=== PATIENT | female | born 1930 | race Hispanic/Latino ===

== ENCOUNTER → 2019-10-05 | Outpatient (CLI) | payer MEDICARE | END | disposition home or self-care (01) | LOC: SHCH 08:38 | PROVIDERS: ATTEND Internal Medicine Cardiovascular Disease | DX: I73.9 Peripheral vascular disease, unspecified (principal) | CPT/HCPCS: 93922 ==

== ENCOUNTER 2019-10-23 07:28 | Day surgery (SDC) | payer MEDICARE ==
[2019-10-21 14:51] LABS: BASOPHILS % (AUTO) 0.2 % (0.0-5.0); EOSINOPHILS % (AUTO) 0.4 % (0.0-8.0); HEMATOCRIT 32.2 % (36-48); LYMPHOCYTES % (AUTO) 8.4 % (21.0-51.0); MEAN CORPUSCULAR HEMOGLOBIN 28.2 pg (27.0-33.0); MEAN CORPUSCULAR HGB CONC 30.4 g/dL (32.0-36.0); MEAN CORPUSCULAR VOLUME 92.5 fL (79-99); MONOCYTES % (AUTO) 9.4 % (3.0-13.0); PLATELET COUNT (AUTO) 362 K/uL (130-400); RED BLOOD CELL COUNT(AUTO) 3.48 MIL/uL (4.00-5.50)
[2019-10-21 15:03] LABS: CREATININE 1.2 mg/dL (0.5-1.5); POTASSIUM 4.5 mmol/L (3.5-5.1)
[2019-10-21 15:13] LABS: INR 0.97 (0.85-1.15); PARTIAL THROMBOPLASTIN TIME 31.2 SEC (26.3-35.5); PROTHROMBIN TIME 10.5 SEC (9.6-11.6)
[2019-10-21 15:35] VITALS: BP 129/70
[~2019-10-23 07:28] MED LIST: ACET-2743 PO; ACET1TAB12 PO; AEC81 PO; ALBU1.252 IH; ATOR10TA69 PO; BISA10SU11 RC; CALC-190 PO; CILO50TA PO; CLOP75TA32 PO; GUAI100S13 PO; HYDR-4153 PO; LISI-613 PO; MAG-156 PO; METO25TA6 PO; MIRT15TA6 PO; MVIT PO; ONDA4TAB10 PO; SODIUM CHLORIDE 0.9% 500ML 500 ML IV SCH; VALP250C3 PO
[2019-10-23 08:00] VITALS: BP 144/48
--- NOTE | 2019-10-23 08:00 | NUR ---
PRE OP PT HAS BRUISING TO ARMS AND LEGS. STERISTRIPS TO LEFT LOWER LEG AND PT HAS DRESSING TO LEFT GREAT TOE. PT IN BED IN NO DISTRESS. RELATIVE AT SIDE. CALL LIGHT WITH IN REACH AND BED IN LOWEST POSITION. PT ON IT BUSINESS PROCESS ARCHITECT Addendum: 10/23/19 at 0908 by MAXI HATFIELD RN RN Amended: Links added.
[2019-10-23] MEDS ORDERED: SODIUM CHLORIDE 0.9% 1000ML 1,000 ML IV ONE (09:10)
[2019-10-23 12:00] VITALS: BP 131/48
[2019-10-23] MEDS ORDERED: NITROGLYCERIN 2 MG/VIAL VIAL IV ONE (12:38)
[2019-10-23] MEDS ORDERED: SODIUM BICARB 50MEQ 50ML VIAL ONE (12:38)
[2019-10-23] MEDS ORDERED: IODIXANOL 320 MG/ML 100 ML VIAL ONE (12:38)
[2019-10-23] MEDS ORDERED: LIDOCAINE HCL 2% 20ML ONE (12:38)
[2019-10-23] MEDS ORDERED: HEPARIN SODIUM 1000UNIT/ML 10ML VIAL ONE (12:38)
--- NOTE | 2019-10-23 13:00 | NUR ---
MD HURLEY EVKURT TOMAS HERE TO EVAL PT. PROCEDURE CANCELLED AND NEW MED ORDERS RECEIVED. LASIX 10MG IVP X1 AND K DUR 20 MEQ PO X1. FAMILY INSTRUCTED TO FOLLOW UP AT MD OFFICE FOR REEVAL OF LUNGS. RELATIVE VOICED UNDERSTANDING Addendum: 10/23/19 at 1536 by MAXI HATFIELD RN RN RE EVAL DUE TO CONGESTED COUGH
[2019-10-23] MEDS ORDERED: FUROSEMIDE 10 MG/ML 2ML VIAL IVP SCH (13:49)
[2019-10-23] MEDS ORDERED: POTASSIUM CHLORIDE 20 MEQ ERTAB PO SCH (14:00)
[2019-10-23 14:10] VITALS: BP 156/91
--- NOTE | 2019-10-23 14:10 | NUR ---
PT STATUS PT HAD CHOKING EPISODE WITH POTASSIUM PILL. PT SUCTIONED AND O2 APPLIED. PT TOLERATED PROCEDURES WELL. PT IN STABLE CONDITION AND LAYING COMFORTABLY IN BED. WILL CONTINUE TO MONITOR PT.
[2019-10-23 14:30] VITALS: BP 160/58
--- NOTE | 2019-10-23 14:40 | NUR ---
REPORT REPORT CALLED TO ANAT MANZO LVN FROM [facility]. INFORMED OF MEDS GIVEN HERE AND PROCEDURE CANCELLED AND FOLLOW UP
--- NOTE | 2019-10-23 15:23 | NUR ---
DISCHARGE [facility] HERE FOR PT. PT IN NO DISTRESS TAKEN VIA STRETCHER. FAMILY AT SIDE. PT BEING TAKEN TO [facility]
== END 2019-10-23 15:25 ==
LOC: DAH 07:28
PROVIDERS: ATTEND Internal Medicine Cardiovascular Disease
DX: I73.9 Peripheral vascular disease, unspecified (principal); I10 Essential (primary) hypertension; F03.90 Unspecified dementia, unspecified severity, without behavioral disturbance, psychotic disturbance, mood disturbance, and anxiety; M86.9 Osteomyelitis, unspecified; Z79.01 Long term (current) use of anticoagulants; Z53.8 Procedure and treatment not carried out for other reasons
CPT/HCPCS: 36415; 71045; 80048; 82948; 85025; 85610; 85730; 93005 ×2; A4215; A4216; A4221; A4222; A4223 ×3; A4606; A4663; J1644; J1940; J3490 ×3; J7030; Q9967